=== PATIENT | male | born 1985 | race African-American/Black ===

== ENCOUNTER 2018-11-24 10:12 | Emergency (ER) | payer OTHER ==
[~2018-11-24] VITALS: Ht 175.3 cm; Wt 72.6 kg
== END 2018-11-24 12:29 | disposition home or self-care (01) ==
LOC: ER 10:12
DX: S61.412A Laceration without foreign body of left hand, initial encounter (principal); W22.8XXA Striking against or struck by other objects, initial encounter
CPT/HCPCS: 12002; 73130; 99283-25